=== PATIENT | female | born 2005 | race Caucasian/White ===

== ENCOUNTER 2024-02-23 23:08 | Emergency (ER) | payer OTHER, SELFPAY ==
[2024-02-23 23:10] VITALS: BP 109/85
--- NOTE | 2024-02-24 00:51 | ED.GENMED ---
History of Present Illness
General
Chief Complaint: Abdominal Pain
Source: patient
Exam Limitations: none
Time Seen by Provider: 02/23/24 23:31
History of Present Illness
History of Present Illness:
This is a 18 year old female that comes in with c/o left lower abd pain. States that she feels like she had a cyst rupture. States that she started with yesterday and it wasn't bad. Then tonight it got worse and she was sweating and had increased
pain. States that she took Advil 800mg and it only helped a little. States that she was nauseated. Denies any fever, chills, chest pain, SOB, vomiting, diarrhea, headache, dizziness, urinary burning
Past History
Past History
ED Past Medical History: Arrthythmia (SVT), Asthma, Psychiatric (Depression) and Other (Ovarian cyst, C-diff, Denies PCOS, Factor R-2)
ED Past Surgical History: Appendectomy
Social History
Tobacco: Vaping
Alcohol: None
Drug: None
Personal: Single
Living: with family
Review of Systems
Review of Systems
All Other Systems: ROS reviewed and negative except as documented in HPI and ROS
Constitutional: Reports no symptoms; Denies fever or chills
EENT: Reports no symptoms
Respiratory: Reports no symptoms; Denies cough or trouble breathing
Cardiac: Reports no symptoms; Denies chest pain
ABD/GI: Reports abdominal pain and nausea; Denies vomiting or diarrhea
: Reports no symptoms; Denies dysuria, frequency or urgency
Musculoskeletal: Reports no symptoms
Skin: Reports no symptoms
Neurological: Reports no symptoms; Denies dizzy or headache
Psychiatric: Reports no symptoms
Phy Exam
General Physical Exam
General Presentation: no apparent distress
General age: appears stated age
General Skin: warm and dry
General Habitus: normal
General Mental: alert
General Hydration: appears well hydrated
ENT Exam
ENT Exam: TM's normal, pharynx normal and neck supple
Eye Exam
Eye Exam: EOMI
Cardiovascular Exam
Cardiovascular Exam: regular rate/rhythm, no edema, no murmur and normal peripheral pulses
Pulmonary Exam
Pulmonary Exam: lungs clear, no respiratory distress, no rales, chest non tender, no crackles, no rhonchi, no wheezing and no cough
Gastrointestinal Exam
Gastrointestinal Exam: normal bowel sounds, soft, no organomegaly, no pulsatile mass, non distended and tender (LLQ tenderness with palpation)
Musculoskeletal Exam
Musculoskeletal Exam: full ROM and no edema
Skin Exam
Skin Exam: normal color, warm/dry, no rash and no petechia
Psychiatric Exam
Psychiatric Exam: normal mood/affect
Course
Orders/Labs/Results
Orders:
Orders
02/24/24 00:50
US Pelvis W Transvag Combined Urgent
Comment: history of cyst
Reason For Exam: left lower abd pain
02/24/24 00:51
Test Result ONCE
02/24/24 00:58
Iohexol [Omnipaque] See Protocol PO NOW STA
02/24/24 01:02
Comprehensive Metabolic Panel Urgent
Comment: ADD ON
HCG, Serum Qualitative Screen Urgent
Urinalysis Reflex To Culture Urgent
Specimen Description:
Date Specimen was Collected: 02/24/24
Time Specimen was Collected: 00:52
02/24/24 02:33
CT Abd/pel W Iv And Oral Contr Urgent
Comment:
Reason For Exam: LLQ pain
Iohexol [Omnipaque] See Protocol PO NOW STA
02/24/24 02:34
Add On- LAB Urgent
Tests Added?: COMP
02/24/24 02:37
Complete Blood Count/With Diff Urgent
Abnormal Lab Results
02/24/24 02/24/24
01:02 02:37
WBC 11.4 H 10^3/uL
(4.8-10.8)
RBC 3.89 L 10^6/uL
(4.20-5.40)
Hgb 11.6 L g/dL
(12.0-16.0)
Hct 32.5 L %
(37.0-47.0)
Absolute Lymphs (auto) 4.2 H 10^3/uL
(1.2-3.4)
Absolute Monos (auto) 0.8 H 10^3/uL
(0.1-0.6)
Glucose 119 H mg/dl
(70-99)
02/24/24 02:37
02/24/24 01:02
WBC very slightly elevated. H/H slightly low. HCG negative. urine negative for infection or blood, Glucose nonfasting.
Vital Signs
Initial and Last Documented VS:
Initial Vital Signs
Temp Pulse Resp BP Pulse Ox
98.7 F 87 20 109/85 100
02/23/24 23:10 02/23/24 23:10 02/23/24 23:10 02/23/24 23:10 02/23/24 23:10
Last Documented Vital Signs
Temp Pulse Resp BP Pulse Ox
98.7 F 77 16 95/68 99
02/23/24 23:10 02/24/24 02:11 02/24/24 02:11 02/24/24 02:11 02/24/24 02:11
MDM/Problems Addressed
Differential Diagnosis Includes:
Ovarian cyst. Colitis. Diverticulitis.
MDM/Problems Addressed:
This is a 18 year old female that comes in with c/o lower abd pain on the left. States that it started yesterday and then this evening the pain got worse. States that she thinks this is a ruptured cyst.
Will get Urine. US and have patient drink for CT just in case US is negative
Back into see patient. Patient resting quietly in bed. Explained that her CT is negative for any acute disease on the left. There is a cyst on the right side that has gotten larger. Patient is to follow up with the ROLL CUTTING OPERATOR. States that she just saw
her and was to have a US in March. Encouraged to call and let them know that the Ultrasound and CT has been done and they can make decisions about the right ovarian cyst. Blood work is normal. Will discharge patient home.
Chronic conditions affecting care:
NA
Acute Exacerbation and/or Progression of Chronic Illness:
NA
*Radiology
Radiology exam reviewed: radiology read reviewed (US-Small probable corpus luteum cyst of hemorrhagic cyst right ovary. The ovaries and adnexa otherwise are unremarkable. Other follicles in the ovaries bilaterally. NO evidence for torsion. Mild
simple free fluid. Uterus and endometrial stripe are unremarkable. CT night hawk-Right ovary cystic), all reviewed NAD by ED Provider (CT cont-structure measuring 4.3X2.3X3cm probably hemorrhagic cyst and size probably underestimated on the
Ultrasound. CT and Ultrasound have a decreased sensitivity for intermittent/partial torsion. Symptoms are on the contralateral left side per clinician. Left ovary is unremarkable. Mild ) and other (CT cont-intermediate density free fluid probable
blood products. Scarring in the right kidney with probable normal variant extrarenal pelvix. NO evidence for stones or obstruction. Appendectomy by history. Gallbladder and bowel are unremarkable. )
*Pulse Oximetry
Patient hypoxic: no
*EKG
Interpreted by ED Provider?: NA
Rate: EKG- N/A
*Duct Cleaner Interpretation
Rate: Duct Cleaner- N/A
*Critical Care Note
Total Time (30-74mins, 75-104mins- exclusive of procedures): Not Applicable
ED Attending Note
-
Portions of this chart may have been created with voice recognition software.� Occasional wrong word or��sound alike� substitutions may have occurred due to the inherent limitations of voice recognition software.
Discharge Plan
Departure
Patient Disposition: Home (Routine Discharge)
Date of Disposition: 02/24/24
Time of Disposition: 04:09
Patient with high blood pressure during this ER visit?: No
Condition: Good
Covid-19: Not Applicable
Discharge Problem:
Abdominal pain, left lower quadrant, Cyst of right ovary
Instructions: Ovarian Cyst (DC), Abdominal Pain
Prescriptions:
No Action
albuterol sulfate 1 PUFF HFA aerosol inhaler
2 puff inhalation R Q4HPRN PRN (Reason: sob/wheezing)
diclofenac potassium 50 mg tablet
50 mg PO BIDPRN PRN (Reason: Pain) Qty: 20 0RF
Referrals:
Abbie Schreiber MD [Family Provider] - Call in 1-3 days for appt
Activity Restrictions/Additional Instructions:
As discussed, your blood work shows that your white blood cell count is very slightly elevated. Otherwise your labs are normal. Your urine is negative or infection. Your Ultrasound and CT both show a right ovarian cyst which has gotten larger. No
acute disease process on the left side to account for your discomfort. Please call your ROLL CUTTING OPERATOR on Monday for follow up appointment. You may use Tylenol or Ibuprofen for pain. IF YOU HAVE INCREASED OR CHANGING PAIN, OR YOU HAVE ANY OTHER CONCERNS
PLEASE RETURN TO THE EMERGENCY ROOM.
Interventions
Interventions:
*Risk Screen - Suicide Last Done: 02/23/24 23:10
*Neglect/Abuse Screening Last Done: 02/23/24 23:10
*ED COVID-19 Vaccine History Last Done: 02/23/24 23:10
EW-Fxhwoj-Udatyugayz Assessment Last Done: 02/24/24 01:00
Discharge Date and Time
Print Language: SYRIAC
[2024-02-24] MEDS: OMNIPAQUE 50 ML PO (01:07)
[2024-02-24 01:16] LABS: Urine Albumin Negative (Neg - Trace); Urine Bilirubin Negative (Negative); Urine Character Clear (Clear); Urine Color Straw; Urine Glucose Negative (Negative); Urine Ketone Negative (Negative); Urine Leukocyte Negative (Negative); Urine Nitrite Negative (Negative); Urine Occult Blood Negative (Negative); Urine Urobilinogen Negative (Neg - 1+)
[2024-02-24 01:42] LABS: HCG, Serum Qualitative Screen Negative
[2024-02-24 02:11] VITALS: BP 95/68
[2024-02-24 02:48] LABS: % Basophils 0.4 % (0-2); % Immature Granulocytes 0.3 % (0-0.5); % Lymphocytes 36.5 % (20.5-51.1); % Monocytes 6.7 % (1.7-9.3); % Neutrophils 55.1 % (42.2-75.2); Absolute Basophils 0.1 10^3/uL (0-0.2); Absolute Eosinophils 0.1 10^3/uL (0-0.7); Absolute Lymphocytes 4.2 10^3/uL (1.2-3.4); Absolute Monocytes 0.8 10^3/uL (0.1-0.6); Absolute Neutrophils 6.3 10^3/uL (1.4-6.5); Hematocrit 32.5 % (37.0-47.0); Hemoglobin 11.6 g/dL (12.0-16.0); Mean Corp Hgb Conc. 35.7 g/dL (33.0-37.0); Mean Corpuscular Hgb 29.8 pg (27.0-31.0); Mean Corpuscular Volume 83.5 fL (81.0-99.0); Nucleated Red Blood Cells % 0 %; Platelet Count 261 10^3/uL (130-400); Red Blood Cell Count 3.89 10^6/uL (4.20-5.40); Red Cell Dist. Width 12.5 % (11.5-14.5); White Blood Cell Count 11.4 10^3/uL (4.8-10.8)
[2024-02-24 03:08] LABS: ALT (SGPT) 13 U/L (0-35); AST (SGOT) 22 U/L (14-36); Albumin 4.2 g/dl (3.5-5.0); Alkaline Phosphatase 49 U/L (38-126); Blood Urea Nitrogen 14 mg/dl (7-17); Calcium 9.8 mg/dl (8.4-10.2); Carbon Dioxide 22 mmol/L (22-30); Chloride 106 mmol/L (98-107); Glucose 119 mg/dl (70-99); Potassium 4.4 mmol/L (3.5-5.1); Sodium 141 mmol/L (135-145); Total Bilirubin 0.4 mg/dl (0.2-1.3); Total Protein 6.7 g/dl (6.3-8.2); eGFR > 60.00
[2024-02-24 04:05] VITALS: BP 111/67
== END 2024-02-24 04:16 | disposition home or self-care (01) ==
LOC: EMR 23:08
PROVIDERS: Clinical Nurse Specialist Family Health; EMERGENCY PHYSICIAN Emergency Medicine; FAMILY PHYSICIAN Emergency Medicine
DX: R10.32 Left lower quadrant pain (principal); N83.201 Unspecified ovarian cyst, right side; J45.909 Unspecified asthma, uncomplicated; F17.290 Nicotine dependence, other tobacco product, uncomplicated; Z90.49 Acquired absence of other specified parts of digestive tract
CPT/HCPCS: 99284; 74177; 76830; 76856; 80053; 81003; 84703; 85025; Q9967

== ENCOUNTER → 2024-09-25 12:09 | Outpatient (REF) | payer OTHER, SELFPAY | LOC: RAD 12:09 | PROVIDERS: ATTENDING PHYSICIAN Emergency Medicine | DX: M25.562 Pain in left knee (principal); M79.672 Pain in left foot | CPT/HCPCS: 73564; 73630 ==

== ENCOUNTER 2024-10-11 21:39 | Emergency (ER) | payer OTHER, SELFPAY ==
[2024-10-11 21:40] VITALS: BP 120/93
[2024-10-11 23:45] LABS: Hematocrit 37.8 % (37.0-47.0); Hemoglobin 13.5 g/dL (12.0-16.0); Mean Corp Hgb Conc. 35.7 g/dL (33.0-37.0); Mean Corpuscular Hgb 30.5 pg (27.0-31.0); Mean Corpuscular Volume 85.5 fL (81.0-99.0); Mean Platelet Volume 9.9 fL (7.4-10.4); Platelet Count 300 10^3/uL (130-400); Red Blood Cell Count 4.42 10^6/uL (4.20-5.40); Red Cell Dist. Width 12.5 % (11.5-14.5); White Blood Cell Count 10.4 10^3/uL (4.8-10.8)
[2024-10-12 00:01] LABS: HCG, Serum Qualitative Screen Negative
[2024-10-12 00:04] LABS: Blood Urea Nitrogen 18 mg/dl (7-17); Carbon Dioxide 22 mmol/L (22-30); Chloride 111 mmol/L (98-107); Glucose 98 mg/dl (70-99); Potassium 4.4 mmol/L (3.5-5.1); Sodium 138 mmol/L (135-145); eGFR > 60.00
[2024-10-12] MEDS: NSS 500 IV (00:04)
--- NOTE | 2024-10-12 00:23 | ED.GENMED ---
History of Present Illness
General
Chief Complaint: Female Clearance Rep/Gu symptoms
Source: patient
Exam Limitations: none
Time Seen by Provider: 10/11/24 22:58
Nursing documentation reviewed up to this point in time: agreed with
History of Present Illness
History of Present Illness:
Patient presents to ED secondary to intermittent lower abdominal pain with nausea sensation since this morning. Patient is on first day of her menstrual cycle. Patient describes abdominal pain as sharp, nonradiating, without any alleviating or
exacerbating factors. Patient has had number of similar symptoms in the past, secondary to ovarian cyst that have ruptured. Patient has not required any surgical intervention in the past. Denies vomiting. Denies fever or chills. Denies trauma.
Denies recent change in activities. Denies dizziness. Denies difficulty with urination.
Past History
Past History
ED Past Medical History: Arrthythmia (SVT), Asthma, Psychiatric (Depression) and Other (Ovarian cyst, C-diff, Denies PCOS, Factor R-2)
ED Past Surgical History: Appendectomy
Social History
Tobacco: Vaping
Alcohol: None
Drug: None
Personal: Single
Living: with family
Review of Systems
Review of Systems
Allergies reviewed?: Yes
All Other Systems: ROS reviewed and negative except as documented in HPI and ROS
Constitutional: Reports no symptoms; Denies fever
ABD/GI: Reports abdominal pain and nausea; Denies vomiting
: Reports no symptoms
Musculoskeletal: Reports no symptoms
Skin: Reports no symptoms
Neurological: Reports no symptoms
Phy Exam
Physical Exam
Physical Exam:
Physical Exam
General: no apparent distress, not acutely ill. afebrile
Head: nc/at. eomi
Neck: supple. normal range of motion
Abdomen: normal bowel sounds. not tender.
Neuro: alert and oriented x 3. no focal neurological deficits
Skin: no rash
Psychiatric: well kept. interactive and cooperative
Extremities: no edema. no calf tenderness.
Course
Orders/Labs/Results
Orders:
Orders
10/11/24 23:04
0.9% Sodium Chloride 500 ml [Nss] 500 ml IV BOLUS
Test Result ONCE
US Pelvis W Transvag Combined Urgent
Comment:
Reason For Exam: lower abd pain
10/11/24 23:37
Basic Metabolic Panel Urgent
Complete Blood Count/No Diff Urgent
HCG, Serum Qualitative Screen Urgent
Abnormal Lab Results
10/11/24
23:37
Chloride 111 H mmol/L
(98-107)
BUN 18 H mg/dl
(7-17)
10/11/24 23:37
10/11/24 23:37
Vital Signs
Initial and Last Documented VS:
Initial Vital Signs
Temp Pulse Resp BP Pulse Ox
98.6 F 78 18 120/93 96
10/11/24 21:40 10/11/24 21:40 10/11/24 21:40 10/11/24 21:40 10/11/24 21:40
Last Documented Vital Signs
Temp Pulse Resp BP Pulse Ox
98.6 F 78 18 120/93 96
10/11/24 21:40 10/11/24 21:40 10/11/24 21:40 10/11/24 21:40 10/11/24 21:40
MDM/Problems Addressed
MDM/Problems Addressed:
Pelvic ultrasound report reviewed and discussed with patient and her mother. History and exam consistent with likely recurrent hemorrhagic, ruptured ovarian cyst, without any evidence of ovarian torsion. Patient otherwise remains afebrile,
hemodynamically stable, and well-appearing. Patient will be discharged home in stable condition, with recommendation to follow-up with her PCP or SALES VENDOR physician for reevaluation. Advised to consider return to ED with sudden worsening of symptoms,
as that may potentially represent ovarian torsion.
*Critical Care Note
Total Time (30-74mins, 75-104mins- exclusive of procedures): Not Applicable
ED Attending Note
-
Portions of this chart may have been created with voice recognition software.� Occasional wrong word or��sound alike� substitutions may have occurred due to the inherent limitations of voice recognition software.
Discharge Plan
Departure
Patient Disposition: Home (Routine Discharge)
Date of Disposition: 10/12/24
Time of Disposition: 00:27
Patient with high blood pressure during this ER visit?: Yes
Condition: Good
Discharge Problem:
Ovarian cyst rupture
Instructions: Ovarian cyst - ED discharge instructions
Prescriptions:
No Action
albuterol sulfate 1 PUFF HFA aerosol inhaler
2 puff inhalation R Q4HPRN PRN (Reason: sob/wheezing)
diclofenac potassium 50 mg tablet
50 mg PO BIDPRN PRN (Reason: Pain) Qty: 20 0RF
Referrals:
Abbie Schreiber MD [Family Provider, Internal Medicine]
Activity Restrictions/Additional Instructions:
As discussed, please follow-up with your primary care physician and/or SALES VENDOR physician with any further concerns. Please return to ED with sudden onset of worsening symptoms, as that may represent potential ovarian torsion.
Interventions
Interventions:
*Risk Screen - Suicide Last Done: 10/11/24 21:40
*Neglect/Abuse Screening Last Done: 10/11/24 21:40
*Nursing Disposition Last Done: 10/12/24 01:08
ED-Female Genitourinary Assessment Last Done: 10/11/24 23:00
Discharge Date and Time
Discharge Date/Time: 10/12/24 01:08
Print Language: UZBEK
== END 2024-10-12 01:08 | disposition home or self-care (01) ==
LOC: EMR 21:39
PROVIDERS: EMERGENCY PHYSICIAN Emergency Medicine; FAMILY PHYSICIAN Emergency Medicine
DX: N83.292 Other ovarian cyst, left side (principal); R03.0 Elevated blood-pressure reading, without diagnosis of hypertension; F17.290 Nicotine dependence, other tobacco product, uncomplicated
CPT/HCPCS: 99285; 76830; 76856; 80048; 84703; 85027

== ENCOUNTER 2025-03-14 21:16 | Emergency (ER) | payer OTHER, SELFPAY ==
[2025-03-14 21:30] VITALS: BP 113/78
[2025-03-14 21:55] LABS: Urine Character Clear (Clear)
[2025-03-14 22:02] LABS: Hematocrit 43.6 % (37.0-47.0); Hemoglobin 14.5 g/dL (12.0-16.0); Mean Corp Hgb Conc. 33.3 g/dL (33.0-37.0); Mean Corpuscular Volume 87.7 fL (81.0-99.0); Nucleated Red Blood Cells % 0 %; Platelet Count 347 10^3/uL (130-400); Red Cell Dist. Width 12.9 % (11.5-14.5)
[2025-03-14 22:10] LABS: Urine Red Blood Cell 0-2 /HPF (0-2); Urine White Cell 0-2 /HPF (0-5)
[2025-03-14 22:18] LABS: HCG, Serum Qualitative Screen Negative
[2025-03-14 22:22] LABS: ALT (SGPT) 14 U/L (0-35); AST (SGOT) 23 U/L (14-36); Albumin 5.1 g/dl (3.5-5.0); Alkaline Phosphatase 43 U/L (38-126); Blood Urea Nitrogen 10 mg/dl (7-17); Calcium 10.5 mg/dl (8.4-10.2); Carbon Dioxide 25 mmol/L (22-30); Chloride 105 mmol/L (98-107); Glucose 92 mg/dl (70-99); Potassium 4.7 mmol/L (3.5-5.1); Sodium 137 mmol/L (135-145); Total Protein 8.3 g/dl (6.3-8.2); eGFR > 60.00
[2025-03-14 23:35] VITALS: BMI 19.9
--- NOTE | 2025-03-15 00:15 | ED.GENMED ---
History of Present Illness
General
Chief Complaint: Abdominal Pain
Source: patient
Exam Limitations: none
Time Seen by Provider: 03/14/25 23:55
History of Present Illness
History of Present Illness:
See MDM
Past History
Past History
ED Past Medical History: Arrthythmia (SVT), Asthma, Psychiatric (Depression) and Other (Ovarian cyst, C-diff, Denies PCOS, Factor R-2)
ED Past Surgical History: Appendectomy
Social History
Tobacco: Vaping
Alcohol: None
Drug: None
Personal: Single
Living: with family
Phy Exam
Physical Exam
Physical Exam:
See MDM
Course
Orders/Labs/Results
Orders:
Orders
03/14/25 21:37
Test Result ONCE
03/14/25 21:47
Complete Blood Count/With Diff Urgent
Comprehensive Metabolic Panel Urgent
HCG, Serum Qualitative Screen Urgent
Urinalysis Reflex To Culture Urgent
Date Specimen was Collected: 03/14/25
Time Specimen was Collected: 21:41
Urine Microscopic Reflex Cult Urgent
Abnormal Lab Results
03/14/25
21:47
Absolute Lymphs (auto) 4.0 H 10^3/uL
(1.2-3.4)
Calcium 10.5 H mg/dl
(8.4-10.2)
Total Protein 8.3 H g/dl
(6.3-8.2)
Albumin 5.1 H g/dl
(3.5-5.0)
Ur Occult Blood Reflex 4+ A
(Negative)
Urine Bacteria (Reflex) Few A
(Negative)
03/14/25 21:47
03/14/25 21:47
Vital Signs
Initial and Last Documented VS:
Initial Vital Signs
Temp Pulse Resp BP Pulse Ox
97.9 F 91 20 113/78 100
03/14/25 21:30 03/14/25 21:30 03/14/25 21:30 03/14/25 21:30 03/14/25 21:30
Last Documented Vital Signs
Temp Pulse Resp BP Pulse Ox
97.9 F 91 20 113/78 100
03/14/25 21:30 03/14/25 21:30 03/14/25 21:30 03/14/25 21:30 03/14/25 21:30
MDM/Problems Addressed
Differential Diagnosis Includes:
Note:
CHIEF COMPLAINT(S)
Abdominal pain.
HISTORY OF PRESENT ILLNESS
The patient is a 19-year-old female presenting with abdominal pain coinciding with her menstrual period, which began today. She reports passing an unusual mass during menstruation that appeared tissue-like and distinct from normal blood clots. This
event has prompted concern about potential reproductive or systemic issues. She has a history of ovarian cysts, which have caused significant pain in the past, though current symptoms are milder. The patient has previously been on hormonal
control to manage her symptoms, but it was discontinued after concerns about a possible clotting disorder. The patients primary care provider noted uncertainty about her possessing a clotting disorder or a bleeding disorder, suggesting a potential
bleeding issue instead. The patient reports a family history of clotting disorders and has been advised to avoid hormonal control.
PHYSICAL EXAM
General: Alert, no acute distress.
Skin: Warm, dry.
Head: Normocephalic, atraumatic
Neck: Appears supple, trachea midline.
Eyes, Ears, Nose, Mouth, and Throat: Moist mucous membranes
Cardiovascular: No signs of cyanosis
Respiratory: Respirations are non-labored.
Abdomen: Non-distended. Very mild right lower quadrant tenderness without rebound
Musculoskeletal: No deformities.
Neurological: No focal neurological deficit observed.
Psychiatric: Cooperative, appropriate mood and affect.
PLAN
The plan involves considering potential differential diagnoses, monitoring the patients symptoms, and providing reassurance regarding the presented symptoms.
DIFFERENTIAL DIAGNOSIS
The Differential Diagnosis includes, in no particular order and is not limited to:
- Early appendicitis
- Ovarian cysts
- Polycystic ovarian syndrome (PCOS)
- Endometriosis
- Miscarriage (ruled out due to negative test)
- Pelvic inflammatory disease
- Uterine fibroids
- Uterine or endometrial mass
- Coagulopathy
- Dysmenorrhea
SUMMARY OF ENCOUNTER
The patient was seen in the emergency department for abdominal pain associated with menstruation, along with the passage of unusual tissue-like material. A negative test ruled out miscarriage. The patient has a previous history of ovarian
cysts and a family history of clotting disorders. Her abdominal pain is mild, and the mass was deemed likely uterine tissue. No imaging or invasive testing was performed at this visit.
DISPOSITION
Discharge with outpatient follow-up.
ASSESSMENT
The patient is suspected to have symptoms related to ovarian cysts and/or physiological menstrual shedding of the uterine lining. Potential gynecological issues such as endometriosis or PCOS should be further explored with her
cdl program coordinator-shipping clerk packing.
PATIENT EDUCATION AND COUNSELING
The patient was advised on the benign nature of her symptoms and reassured regarding the negative test. She was informed about the potential causes of her symptoms and advised to follow up with her shipping clerk packing for further evaluation of
her cysts and to discuss hormonal therapy options.
FOLLOW-UP INSTRUCTIONS
The patient should follow up with her primary care physician or shipping clerk packing for further evaluation and management of her ovarian cysts and potential bleeding or clotting disorder. No immediate further testing was deemed necessary in the emergency
department.
MEDICAL DECISION MAKING
- Complexity of Data Reviewed: Chronic conditions affecting care include a history of ovarian cysts, family history of clotting disorders, and potential bleeding disorder.
- Data:
Category 1: No external records reviewed at this time.
Category 2: No additional external inputs.
Category 3: No discussions with other healthcare providers during this visit.
DIAGNOSIS
- Pain associated with menstruation. (ICD-10: N94.4)
- History of ovarian cysts. (ICD-10: N83.2)
- Family history of clotting disorder. (ICD-10: Z83.71)
Disposition:
SUMMARY OF ENCOUNTER
The patient, a 19-year-old female, presented to the emergency department with abdominal pain in the right lower quadrant which resolved during her visit. She expressed concern about passing tissue-like material during menstruation. The patient is
sexually active but does not suspect any STDs. She has a history of ovarian cysts and has undergone an appendectomy in the past. Given the similarity of her current symptoms to previous experiences with ruptured ovarian cysts, further imaging like
an ultrasound was considered but deemed unnecessary. The patient was comfortable with being discharged and was advised on follow-up with her shipping clerk packing.
DISPOSITION
Discharge with outpatient follow-up.
ASSESSMENT
The symptoms are likely related to ovarian cyst rupture and normal physiological menstrual shedding.
PLAN
The patient was advised to follow up with her shipping clerk packing for further evaluation of her ovarian cysts and to discuss potential treatment options.
PATIENT EDUCATION AND COUNSELING
The patient was educated about the benign nature of passing tissue during menstruation and the likelihood of her symptoms being related to ovarian cyst rupture. She was reassured and advised on the importance of gynecological follow-up.
FOLLOW-UP INSTRUCTIONS
The patient should follow up with her shipping clerk packing for further evaluation and management of her condition.
MEDICAL DECISION MAKING
- Complexity of Data Reviewed: Chronic conditions affecting care include a history of ovarian cysts and prior appendectomy. Differential Diagnosis includes early appendicitis, ovarian cysts, PCOS, endometriosis, pelvic inflammatory disease, uterine
fibroids, uterine or endometrial mass, coagulopathy, and dysmenorrhea.
- Data:
- Category 1: Ultrasound was considered but not ordered because of similarity to previous cyst rupture events and presence of prior imaging results.
- Risk: Consideration of Admission/Observation: Escalation of care including admission/observation was considered given the complexity and risk of the patients presenting complaint and exam findings. However, ultimately I feel the patient is safe
for outpatient management with close follow-up. Reasoning: Work-up reassuring, does not reveal any acute life/organ threatening processes, patients symptoms well controlled upon reevaluation, reexamination is reassuring, vitals are stable, patient
agreeable with discharge, reliable for follow-up.
DIAGNOSIS
Pain associated with menstruation (ICD-10: N94.4), History of ovarian cysts (ICD-10: N83.2).
*Pulse Oximetry
SaO2: 100
Oxygen Mode of Delivery: Room air
Patient hypoxic: no
*Critical Care Note
Total Time (30-74mins, 75-104mins- exclusive of procedures): Not Applicable
ED Attending Note
-
Portions of this chart may have been created with voice recognition software.� Occasional wrong word or��sound alike� substitutions may have occurred due to the inherent limitations of voice recognition software.
Discharge Plan
Departure
Patient Disposition: Home (Routine Discharge)
Date of Disposition: 03/15/25
Time of Disposition: 00:18
Patient with high blood pressure during this ER visit?: No
Discharge Problem:
Ovarian cyst
Instructions: Ovarian Cyst (DC)
Prescriptions:
No Action
albuterol sulfate 1 PUFF HFA aerosol inhaler
2 puff inhalation R Q4HPRN PRN (Reason: sob/wheezing)
diclofenac potassium 50 mg tablet
50 mg PO BIDPRN PRN (Reason: Pain) Qty: 20 0RF
Referrals:
Abbie Schreiber MD [Family Provider, Internal Medicine]
Activity Restrictions/Additional Instructions:
Please return for any worsening symptoms.
You may return at any time if you have further concerns.
Please follow up with your doctor at the first available appointment, preferably this week.
Please discuss your symptoms with your shipping clerk packing.
Thank you for choosing [facility].
Interventions
Interventions:
*Risk Screen - Suicide Last Done: 03/14/25 21:30
*General Assessment Last Done: 03/14/25 21:30
*Neglect/Abuse Screening Last Done: 03/14/25 21:30
*ED- Fall Risk Assessment Last Done: 03/14/25 21:30
*ED COVID-19 Vaccine History Last Done: 03/14/25 21:30
*ED Influenza Vaccine History Last Done: 03/14/25 21:30
TW-Qvtnqt-Bjfbuzmvrz Assessment Last Done: 03/14/25 23:34
Discharge Date and Time
Print Language: [email or web address]
== END 2025-03-15 00:21 | disposition home or self-care (01) ==
LOC: EMR 21:16
PROVIDERS: Emergency Medicine; EMERGENCY PHYSICIAN Student in an Organized Health Care Education/Training Program; FAMILY PHYSICIAN Emergency Medicine
DX: N83.209 Unspecified ovarian cyst, unspecified side (principal); J45.909 Unspecified asthma, uncomplicated; F32.A Depression, unspecified; F17.290 Nicotine dependence, other tobacco product, uncomplicated; Z86.19 Personal history of other infectious and parasitic diseases
CPT/HCPCS: 99283; 80053; 81003; 81015; 84703; 85025

== ENCOUNTER 2025-04-29 18:51 | Emergency (ER) | payer OTHER, SELFPAY ==
[2025-04-29 18:55] VITALS: BP 102/79
[2025-04-29 19:29] LABS: Urine Character Clear (Clear)
[2025-04-29 19:35] LABS: Hematocrit 46.6 % (37.0-47.0); Hemoglobin 16.1 g/dL (12.0-16.0); Mean Corp Hgb Conc. 34.5 g/dL (33.0-37.0); Mean Corpuscular Volume 84.4 fL (81.0-99.0); Nucleated Red Blood Cells % 0 %; Platelet Count 319 10^3/uL (130-400); Red Cell Dist. Width 12.8 % (11.5-14.5); Urine Red Blood Cell 0-2 /HPF (0-2)
[2025-04-29 19:51] LABS: HCG, Serum Qualitative Screen Negative
[2025-04-29 19:55] LABS: ALT (SGPT) 16 U/L (0-35); AST (SGOT) 21 U/L (14-36); Albumin 5.2 g/dl (3.5-5.0); Alkaline Phosphatase 60 U/L (38-126); Blood Urea Nitrogen 12 mg/dl (7-17); Calcium 10.4 mg/dl (8.4-10.2); Carbon Dioxide 20 mmol/L (22-30); Chloride 103 mmol/L (98-107); Glucose 107 mg/dl (70-99); Lipase 73 U/L (23-300); Potassium 4.5 mmol/L (3.5-5.1); Sodium 136 mmol/L (135-145); Total Protein 7.9 g/dl (6.3-8.2); eGFR > 60.00
== END 2025-04-29 21:55 | disposition left against medical advice (07) ==
LOC: EMR 18:51
PROVIDERS: EMERGENCY PHYSICIAN Emergency Medicine
DX: R50.9 Fever, unspecified (principal); Z53.21 Procedure and treatment not carried out due to patient leaving prior to being seen by health care provider
CPT/HCPCS: 80053; 81003; 81015; 83690; 84703; 85025; 87086; 87502